=== PATIENT | male | born 1960 | race Caucasian/White ===

== ENCOUNTER 2025-02-17 19:22 | Emergency (ER) | payer OTHER ==
[~2025-02-17] VITALS: Ht 162.6 cm; Wt 72.0 kg
[2025-02-17 19:28] VITALS: O2SAT 99
[2025-02-18] MEDS: ACETAMINOPHEN 500MG TABLET PO ONE (02:25)
[2025-02-18 03:12] LABS: BASOPHILS % 0.7 % (0.0-2.0); EOSINOPHILS % 5.1 % (0.0-5.0); HEMATOCRIT. 31.5 % (42.0-52.0); HEMOGLOBIN. 10.3 g/dL (14.0-18.0); LYMPHOCYTES % 33.4 % (20.0-50.0); MEAN PLATELET VOLUME 9.0 fl (7.4-10.4); MONOCYTES % 7.8 % (2.0-8.0); NEUTROPHILS % 53.0 % (40.0-76.0); PLATELET 236 x1000/uL (130-400); RED BLOOD CELL COUNT 3.43 mill/uL (4.7-6.1); RED CELL DISTRIBUTION WIDTH 17.7 % (11.6-14.6)
[2025-02-18 03:21] LABS: CREATININE 1.1 mg/dL (0.6-1.3)
[2025-02-18 03:22] LABS: UREA NITROGEN BLOOD 22 mg/dL (9-23)
[2025-02-18 04:45] VITALS: BP 144/65; PULSE 70; RESP 16; TEMP 36.5; O2SAT 100
== END 2025-02-18 05:10 | disposition short-term general hospital (02) ==
LOC: ER 19:22 → CMPBEDREQ 02-19 08:26
DX: M79.604 Pain in right leg (principal); M79.605 Pain in left leg; Z99.3 Dependence on wheelchair
CPT/HCPCS: 36415; 80048; 85025; 93970; 99285